=== PATIENT | male | born 1985 | race Caucasian/White ===

== ENCOUNTER 2021-08-18 13:26 | Outpatient (CLI) | payer OTHER ==
--- NOTE | 2021-08-18 17:21 | XRay Report ---
CHEST 2 VIEWS INDICATION / CLINICAL INFORMATION: +ppd SKIN TEST. COMPARISON: None available. FINDINGS: SUPPORT DEVICES: None. HEART / MEDIASTINUM: No significant abnormality. LUNGS / PLEURA: No significant pulmonary or pleural abnormality. No pneumothorax. There is a calcifie d granuloma in the right upper lobe. No radiographic evidence of active tuberculosis. ADDITIONAL FINDINGS: No significant additional findings. IMPRESSION: 1. Calcified granuloma in the right upper lobe. No radiographic evidence of active tuberculosis. Signer Name: Russell Ames MD Signed: 08/18/2021 5:17 PM Workstation Name: [email or web address]
== END 2021-08-18 13:27 | disposition home or self-care (01) ==
LOC: XRAY 13:26
PROVIDERS: ATTEND Family Medicine
DX: R76.11 Nonspecific reaction to tuberculin skin test without active tuberculosis (principal)
CPT/HCPCS: 71046